=== PATIENT | female | born 1970 | race Caucasian/White ===

== ENCOUNTER → 2018-01-30 | Outpatient (CLI) | payer OTHER ==
[~2018-01-30] MED LIST: AMPDEX5; ATOM18 PO; BUSP5 PO; Betamethasone V15 G1 TP; CLON1 PO; CYCL10 PO; DESV50 PO; LORA2 PO; MELO7.5 PO; NAPR500 PO; OLAN10 PO; OMEP20ER PO; ONDA8 PO; PROM25 PO; PROM25S PR; Prilosec Otc20 MG PO; RXCLIN PO; SAPHRIS10 MG SL; TRAM50 PO; TRAZ150T57
== END | disposition home or self-care (01) ==
LOC: LAB SHORT 16:47 → LAB EV 16:47
DX: N39.0 Urinary tract infection, site not specified (principal)
CPT/HCPCS: 87077; 87086; 87186

== ENCOUNTER 2018-11-16 03:16 | Emergency (ER) | payer OTHER ==
[~2018-11-16] VITALS: Ht 170.2 cm; Wt 59.0 kg
[2018-11-16] MEDS ORDERED: Prednisone20 MG PO (03:31)
[2018-11-16] MEDS ORDERED: Benadryl Itch28.3 GM TOP (03:41)
== END 2018-11-16 03:38 | disposition home or self-care (01) ==
LOC: ER 03:16
DX: L23.7 Allergic contact dermatitis due to plants, except food (principal); L20.9 Atopic dermatitis, unspecified; Z88.0 Allergy status to penicillin; Z88.2 Allergy status to sulfonamides; Z88.8 Allergy status to other drugs, medicaments and biological substances; Z79.899 Other long term (current) drug therapy; F41.9 Anxiety disorder, unspecified
CPT/HCPCS: 99283; J7512

== ENCOUNTER 2019-09-01 10:02 | Emergency (ER) | payer OTHER ==
[~2019-09-01] VITALS: Ht 170.2 cm; Wt 65.8 kg
[~2019-09-01 10:02] MED LIST changes: +Benadryl Itch28.3 GM TOP; +Prednisone20 MG PO
[2019-09-01] MEDS ORDERED: GABA300 PO (10:46)
[2019-09-01] MEDS ORDERED: Crutch1 EACH MISC (12:51)
[2019-09-01] MEDS ORDERED: Norco 10-325 T1 EACH PO (12:51)
== END 2019-09-01 13:14 | disposition home or self-care (01) ==
LOC: ER 10:02
DX: S96.911A Strain of unspecified muscle and tendon at ankle and foot level, right foot, initial encounter (principal); F41.9 Anxiety disorder, unspecified; Z88.0 Allergy status to penicillin; Z88.2 Allergy status to sulfonamides; Z88.1 Allergy status to other antibiotic agents; Z79.899 Other long term (current) drug therapy; X50.1XXA Overexertion from prolonged static or awkward postures, initial encounter
CPT/HCPCS: 29515; 73610; 99283-25